=== PATIENT | female | born 1945 | race Caucasian/White ===

== ENCOUNTER 2020-04-09 09:41 | Emergency (ER) | payer MEDICARE, OTHER ==
[~2020-04-09] VITALS: Ht 167.6 cm; Wt 121.6 kg
[~2020-04-09 09:41] MED LIST: ALEVE220 M1 PO; AZOR 10-40 MG1 EACH PO; BP MEDICATION; CENTRUM SILVER1 EAC3 PO; COREG25 MG PO; CYCLOBENZAPRINE10 MG PO; ECOTRIN325 MG PO; ESIDRIX25 MG PO; FUROSEMIDE40 MG PO; GLUCOSAMINE PO; HYDRALAZINE HCL25 MG PO; HYDROCODON-ACE1 EACH PO; LASIX; MOVE FREE PO; OXYBUTYNIN CHLOR5 MG PO; PAROXETINE HCL30 MG PO; PAXIL
[2020-04-09] MEDS ORDERED: POTASSIUM CHLO20 ME1 (10:07)
[2020-04-09] MEDS ORDERED: GUAIATUSSIN AC118 ML PO (10:07)
[2020-04-09] MEDS ORDERED: FLUTICASONE PRO16 GM (10:07)
[2020-04-09] MEDS ORDERED: LEVALBUTER0.63 MG/3 NEB (10:07)
[2020-04-09 10:11] LABS: BASOPHILS % 0.1 % (0.0-1.0); HEMOGLOBIN 11.5 g/dL (12.0-16.0); LYMPHOCYTES # (AUTO) 1.2 (1.0-3.2); LYMPHOCYTES % 13.5 % (18.0-39.1); MEAN CORPUSCULAR HEMOGLOBIN 28.5 pg (28-32); MEAN CORPUSCULAR HGB CONC 32.9 g/dL (31-35); MEAN CORPUSCULAR VOLUME 86.8 fL (81-99); MONOCYTES # (AUTO) 0.8 (0.2-0.8); MONOCYTES % 8.8 % (4.4-11.3); NEUTROPHILS # (AUTO) 6.6 (2.1-6.9); PLATELET COUNT 157 x10e3/uL (140-360); RED BLOOD COUNT 4.03 x10e6/uL (3.6-5.1)
[2020-04-09 10:24] LABS: ALANINE AMINOTRANSFERASE 24 IU/L (0-55); ALBUMIN 2.9 g/dL (3.5-5.0); ALBUMIN/GLOBULIN RATIO 0.8 (0.8-2.0); ALKALINE PHOSPHATASE 92 IU/L (40-150); ANION GAP 14.4 mmol/L (8-16); BLOOD UREA NITROGEN 18 mg/dL (7-26); BUN/CREATININE RATIO 21 (6-25); CALCIUM 8.3 mg/dL (8.4-10.2); CARBON DIOXIDE 23 mmol/L (22-29); CHLORIDE 100 mmol/L (98-107); CREATINE KINASE 81 IU/L (29-168); CREATININE, SERUM 0.85 mg/dL (0.57-1.11); EST GLOMERULAR FILTRATION RATE > 60 ML/MIN (60-); GLUCOSE 140 mg/dL (74-118); POTASSIUM 3.4 mmol/L (3.5-5.1); SODIUM 134 mmol/L (136-145)
--- OUTSIDE RECORDS SUMMARY | 2020-04-09 10:37 | XMS REPORT | Continuity of Care Document ---
Author Author [facility] Information ExchangeVADIM [facility] Information Exchange Address Unknown Phone Unavailable Care Team Providers Care Commercial Diver Name Role Phone [facility] Information Exchange Unavailable Un available Problems Problem Status Onset Date Classification Date Reported Comments Source ROUTINE Active 12/07/2011 [facility] OSTEOARTHRITIS Active 05/29/2011 [facility] R KNEE PAIN Active [facility] Medications No Data Provided for This Section Allergies, Adverse Reactions, Alerts No Known Medication Allergies Immunizations No Data Provided for This Section Results No Data Provided for This Section Pathology Reports No Data Provided for This Section Diagnostic Reports No Data Provided for This Section Consultation Notes No Data Provided for This Section Discharge Summaries No Data Provided for This Section History and Physicals No Data Provided for This Section Vital Signs No Data Provided for This Section Encounters Location Location Details Encounter Type Encounter Number Reason For Visit Attending Provider ADM Date DC Date Status Source [facility] Outpatient [id number] R KNEE PAIN KHOI ARIZA 05/23/2011 Active [facility] Outpatient [id number] OSTEOARTHRITIS KHOI ARIZA 06/04/2011 Active [facility] Outpatient [id number] JERRI ALCANTAR 02/22/2015 Active [facility] [id number] JERRI ALCANTAR 05/04/2015 Active [facility] [id number] JRERI ALCANTAR 06/01/2015 Active [facility] [id number] JERRI ALCANTAR 09/01/2015 Active [facility] Outpatient [id number] JERRI ALCANTAR 01/03/2016 Active [facility] [id number] JERRI ALCANTAR 01/26/2016 Active [facility] Outpatient [id number] JERRI ALCANTAR 07/02/2016 Active [facility] [id number] JERRI ALCANTAR 08/01/2016 Active [facility] [id number] JERRI ALCANTAR 12/03/2016 Active [facility] [id number] JERRI ALCANTAR 03/26/2017 Active [facility] Outpatient [id number] JERRI ALCANTAR 06/05/[address] [facility] Outpatient [id number] JERRI ALCANTAR 06/19/2017 Active [facility] Outpatient [id number] JERRI ALCANTAR 10/29/2017 Active [facility] Outpatient [id number] NURSE VISIT 03/27/2018 Active [facility] Outpatient [id number] Jerri Alcantar 09/04/2018 Active [facility] Outpatient [id number] Jerri Alcantar 10/06/2018 Active [facility] Outpatient [id number] Jerri Alcantar 10/17/2018 Active [facility] Outpatient [id number] Jerri Alcantar 01/01/2019 Active [facility] [id number] ROUTINE KHOI ARIZA [facility] Procedures No Data Provided for This Section Assessment and Plan No Data Provided for This Section Plan of Care No Data Provided for This Section Social History No Data Provided for This Section Family History No Data Provided for This Section Advance Directives No Data Provided for This Section Functional Status No Data Provided for This Section
--- NOTE | 2020-04-09 10:39 | Emergency Department Note ---
History of Present Illnes History of Present Illness Chief Complaint: COVID PUI History of Present Illness This is a 75 year old female arrived to the ED with complaints of shortness of breath, recent diagnosis of the coronavirus. . Chief Complaint Comment PT DX WITH COVID ON TUES BY PCP. NOW WITH INCREASED SOB. PER EMS PT WAS 62% ON RA IMPROVED ON O2 AT THIS TIME. Historian: Principal Planner/EMS Arrival Mode: [facility] Treatment SUMMER LAW CLERK: IV, O2 Additional Treatment SUMMER LAW CLERK: ZOFRAN Radiation: Reports non-radiation Severity: mild Onset quality: gradual Duration (how long): day(s) Progression: worsening Chronicity: new Context: Reports recent illness Past Medical/Family History Physician Review I have reviewed the patient's past medical and family history. Any updates have been documented here. Past Medical History Recent Fever: Yes Clinical Suspicion of Infectio: Yes New/Unexplained Change in Ment: No Past Medical History: Hypertension Past Surgical History: Cholecysctectomy, Hysterectomy Other Surgery: KNEE SCOPE Social History Smoking Cessation: Never Smoker Alcohol Use: None Other Any Pre-Existing Lines (PICC,: No Review of Systems Review of Systems Constitutional: Reports no symptoms EENTM: Reports no symptoms Cardiovascular: Reports no symptoms Respiratory: Reports as per HPI Gastrointestinal: Reports no symptoms Genitourinary: Reports no symptoms Musculoskeletal: Reports no symptoms Integumentary: Reports no symptoms Neurological: Reports no symptoms Psychological: Reports no symptoms Endocrine: Reports no symptoms Hematological/Lymphatic: Reports no symptoms Physical Exam Related Data Allergies: Coded Allergies: No Known Allergies (Unverified , 04/11/11) Triage Vital Signs Vital Signs Date Time Temp Pulse Resp B/P (MAP) Pulse Ox O2 Delivery O2 Flow Rate FiO2 04/09/20 09:58 100.7 65 22 139/57 97 Nasal Cannula 4.0 Physical Exam CONSTITUTIONAL Constitutional: Present well-developed, Present well-nourished HENT HENT: Present normocephalic, Present atraumatic, Present oropharynx clear/moist, Present nose normal HENT L/R: Present left ext ear normal, Present right ext ear normal EYES Eyes: Reports PERRL, Reports conjunctivae normal NECK Neck: Present ROM normal PULMONARY Pulmonary: Present effort normal, Present respiratory distress CARDIOVASCULAR Cardiovascular: Present regular rhythm, Present heart sounds normal, Present capillary refill normal, Present normal rate GASTROINTESTINAL Abdominal: Present soft, Present nontender, Present bowel sounds normal GENITOURINARY Genitourinary: Present exam deferred SKIN Skin: Present warm, Present dry MUSCULOSKELETAL Musculoskeletal: Present ROM normal NEUROLOGICAL Neurological: Present alert, Present oriented x 3, Present no gross motor or sensory deficits PSYCHOLOGICAL Psychological: Present mood/affect normal, Present judgement normal Results Laboratory Result Diagram: 04/09/2048 04/09/20 0948 Laboratory Laboratory Tests Test 04/09/20 09:48 White Blood Count 8.51 x10e3/uL (4.8-10.8) Red Blood Count 4.03 x10e6/uL (3.6-5.1) Hemoglobin 11.5 g/dL (12.0-16.0) Hematocrit 35.0 % (34.2-44.1) Mean Corpuscular Volume 86.8 fL (81-99) Mean Corpuscular Hemoglobin 28.5 pg (28-32) Mean Corpuscular Hemoglobin Concent 32.9 g/dL (31-35) Red Cell Distribution Width 14.0 % (11.7-14.4) Platelet Count 157 x10e3/uL (140-360) Neutrophils (%) (Auto) 77.0 % (38.7-80.0) Lymphocytes (%) (Auto) 13.5 % (18.0-39.1) Monocytes (%) (Auto) 8.8 % (4.4-11.3) Eosinophils (%) (Auto) 0.0 % (0.0-6.0) Basophils (%) (Auto) 0.1 % (0.0-1.0) Neutrophils # (Auto) 6.6 (2.1-6.9) Lymphocytes # (Auto) 1.2 (1.0-3.2) Monocytes # (Auto) 0.8 (0.2-0.8) Eosinophils # (Auto) 0.0 (0.0-0.4) Basophils # (Auto) 0.0 (0.0-0.1) Absolute Immature Granulocyte (auto 0.05 x10e3/uL (0-0.1) Sodium Level 134 mmol/L (136-145) Potassium Level 3.4 mmol/L (3.5-5.1) Chloride Level 100 mmol/L (98-107) Carbon Dioxide Level 23 mmol/L (22-29) Anion Gap 14.4 mmol/L (8-16) Blood Urea Nitrogen 18 mg/dL (7-26) Creatinine 0.85 mg/dL (0.57-1.11) Estimat Glomerular Filtration Rate > 60 ML/MIN (60-) BUN/Creatinine Ratio 21 (6-25) Glucose Level 140 mg/dL (74-118) Calcium Level 8.3 mg/dL (8.4-10.2) Total Bilirubin 0.7 mg/dL (0.2-1.2) Aspartate Amino Transf (AST/SGOT) 22 IU/L (5-34) Alanine Aminotransferase (ALT/SGPT) 24 IU/L (0-55) Alkaline Phosphatase 92 IU/L (40-150) Creatine Kinase 81 IU/L (29-168) Creatine Kinase MB 0.90 ng/mL (0-5.0) Troponin I 0.030 ng/mL (0-0.300) Total Protein 6.7 g/dL (6.5-8.1) Albumin 2.9 g/dL (3.5-5.0) Globulin 3.8 g/dL (2.3-3.5) Albumin/Globulin Ratio 0.8 (0.8-2.0) Lab results reviewed: Yes Imaging Imaging results reviewed: Yes Assessment & Plan Medical Decision Making MDM 75-year-old female noted to be Covid positive, required transfer for higher level of care given her oxygen requirement needs. Patient received Solu-Medrol by EMS, oxygen saturation maintained over 95% on 4 L oxygen. Assessment & Plan Final Impression: (1) Acute respiratory disease due to COVID-19 virus Depart Disposition: TRANS TO OTHER [facility] Last Vital Signs Date Time Temp Pulse Resp B/P (MAP) Pulse Ox O2 Delivery O2 Flow Rate FiO2 04/09/20 09:58 100.7 65 22 139/57 97 Nasal Cannula 4.0 Home Meds Reported Medications [Glucosamine] No Conflict Check, PO TID 07/05/15 Amlodipine Bes/Olmesartan Med (FLORECITA 10-40 MG TABLET) 1 Each Tablet, PO DAILY 07/05/15 Furosemide (FUROSEMIDE) 40 Mg Tablet, 40 MG PO Daily, #30 TAB 07/05/15 Mu-Vits-Min Th/Lycopene/Lutein (CENTRUM SILVER TABLET) 1 Each Tablet, PO DAILY 05/03/15 Naproxen Sodium (ALEVE) 220 Mg Capsule, 220 MG PO PRN 05/03/15 Oxybutynin Chloride (OXYBUTYNIN CHLORIDE) 5 Mg Tablet, 5 MG PO DAILY, TAB 05/03/15 Hydralazine Hcl (HYDRALAZINE HCL) 25 Mg Tab, 25 MG PO BID, TAB 05/03/15 Paroxetine Hcl (PAROXETINE HCL) 30 Mg Tablet, 30 MG PO DAILY 02/27/13 Carvedilol (COREG) 25 Mg Tab, 25 MG PO BID 02/27/13 Discontinued Reported Medications Potassium Chloride (POTASSIUM CHLORIDE) 20 Meq Tab.er.prt 04/09/20 Levalbuterol Hcl (LEVALBUTEROL HCL) 0.63 Mg/3 Ml Vial.neb, 0.63 MG NEB, EACH 04/09/20 Fluticasone Propionate (FLUTICASONE PROPIONATE) 16 Gm [place].susp 04/09/20 Guaifenesin/Codeine Phosphate (GUAIATUSSIN AC LIQUID) 118 Ml Liquid, 5 ML PO Q6H 04/09/20 MICHELLE DAUGHERTY, Apr 09, 2020 10:44
--- NOTE | 2020-04-09 10:58 | NUR ---
REPORT TO HERB HATFIELD AT [facility]
--- NOTE | 2020-04-09 11:30 | Diagnostic Imaging Report ---
EXAMINATION: CHEST SINGLE (PORTABLE) INDICATION: Shortness of breath with COVID +. COMPARISON: None FINDINGS: TUBES and LINES: None. LUNGS: Normal lung volumes. There is diffuse interstitial and airspace opacities throughout both lungs. Superimposed bibasilar atelectasis. PLEURA: No pleural effusion or pneumothorax. HEART AND MEDIASTINUM: The cardiomediastinal silhouette is mildly enlarged. There are atherosclerotic calcifications within the aorta. BONES AND SOFT TISSUES: Degenerative changes in the spine and shoulders. Soft tissues are unremarkable. UPPER ABDOMEN: No free air under the diaphragm. IMPRESSION: Diffuse interstitial and airspace opacities throughout both lungs most compatible with multifocal pneumonia. Signed by: Soraya Álvarez MD on 04/09/2020 11:26 AM
== END 2020-04-09 12:48 | disposition other institution (70) ==
LOC: ER 10:00
DX: U07.1 COVID-19 (principal); R06.02 Shortness of breath; I10 Essential (primary) hypertension
CPT/HCPCS: 36415; 71045; 80053; 82550; 82553; 84484; 85025; 87040; 93005; 99284